=== PATIENT | female | born 1950 | race Caucasian/White ===

== ENCOUNTER → 2024-03-23 07:16 | Outpatient (REF) | payer MEDICARE, SELFPAY | LOC: HWWDC 07:16 | PROVIDERS: ATTENDING PHYSICIAN Family Medicine | DX: Z12.31 Encounter for screening mammogram for malignant neoplasm of breast (principal) | CPT/HCPCS: 77063; 77067 ==

== ENCOUNTER → 2025-03-30 09:29 | Outpatient (REF) | payer MEDICARE, SELFPAY | LOC: HWWDC 09:29 | PROVIDERS: ATTENDING PHYSICIAN Family Medicine | DX: Z12.31 Encounter for screening mammogram for malignant neoplasm of breast (principal) | CPT/HCPCS: 77063; 77067 ==